=== PATIENT | male | born 1955 | race Caucasian/White ===

== ENCOUNTER → 2023-09-25 16:06 | Outpatient (REF) | payer MEDICARE, SELFPAY ==
[2023-09-25 16:52] LABS: Hematocrit 46.3 % (39.0-52.0); Hemoglobin 15.5 g/dL (13.0-18.0); Mean Corp Hgb Conc. 33.5 g/dL (33.0-37.0); Mean Corpuscular Hgb 31.4 pg (27.0-31.0); Mean Corpuscular Volume 93.9 fL (80.0-94.0); Mean Platelet Volume 9.2 fL (7.4-10.4); Platelet Count 231 10^3/uL (130-400); Red Blood Cell Count 4.93 10^6/uL (4.70-6.10); Red Cell Dist. Width 12.5 % (11.5-14.5); White Blood Cell Count 8.8 10^3/uL (4.8-10.8)
[2023-09-25 17:15] LABS: ALT (SGPT) 70 U/L (0-50); AST (SGOT) 61 U/L (17-59); Albumin 4.8 g/dl (3.5-5.0); Alkaline Phosphatase 70 U/L (38-126); Total Bilirubin 0.7 mg/dl (0.2-1.3); Total Protein 8.1 g/dl (6.3-8.2)
== END ==
LOC: REG 16:06
PROVIDERS: ATTENDING PHYSICIAN Nurse Practitioner Family; FAMILY PHYSICIAN Family Medicine
DX: B18.2 Chronic viral hepatitis C (principal)
CPT/HCPCS: 36415; 80076; 85027

== ENCOUNTER → 2023-10-23 10:33 | Outpatient (REF) | payer MEDICARE, SELFPAY ==
[2023-10-23 11:15] LABS: % Eosinophils 3.1 % (0-6); % Immature Granulocytes 0.3 % (0-0.5); % Lymphocytes 29.9 % (20.5-51.1); % Monocytes 10.9 % (1.7-9.3); % Neutrophils 54.8 % (42.2-75.2); Absolute Basophils 0.1 10^3/uL (0-0.2); Absolute Eosinophils 0.2 10^3/uL (0-0.7); Absolute Lymphocytes 2.2 10^3/uL (1.2-3.4); Absolute Monocytes 0.8 10^3/uL (0.1-0.6); Hematocrit 45.4 % (39.0-52.0); Hemoglobin 15.1 g/dL (13.0-18.0); Mean Corp Hgb Conc. 33.3 g/dL (33.0-37.0); Mean Corpuscular Hgb 31.3 pg (27.0-31.0); Mean Platelet Volume 9.3 fL (7.4-10.4); Nucleated Red Blood Cells % 0 % (-); Platelet Count 233 10^3/uL (130-400); Red Blood Cell Count 4.83 10^6/uL (4.70-6.10); Red Cell Dist. Width 12.1 % (11.5-14.5); White Blood Cell Count 7.3 10^3/uL (4.8-10.8)
[2023-10-23 12:10] LABS: ALT (SGPT) 17 U/L (0-50); AST (SGOT) 28 U/L (17-59); Albumin 4.5 g/dl (3.5-5.0); Alkaline Phosphatase 69 U/L (38-126); Direct Bilirubin 0.2 mg/dl (0.0-0.4); Total Bilirubin 0.5 mg/dl (0.2-1.3); Total Protein 7.7 g/dl (6.3-8.2)
[2023-10-25 03:30] LABS: HCV Quant by NAAT Interp Detected (Not Detected); HCV Quant by NAAT Log IU/mL <1.00 log IU/mL
== END ==
LOC: REG 10:33
PROVIDERS: ATTENDING PHYSICIAN Nurse Practitioner Family; FAMILY PHYSICIAN Family Medicine
DX: B18.2 Chronic viral hepatitis C (principal)
CPT/HCPCS: 36415; 80076; 85025; 87522

== ENCOUNTER → 2023-11-21 11:14 | Outpatient (REF) | payer MEDICARE, SELFPAY ==
[2023-11-21 12:07] LABS: % Basophils 0.8 % (0-2); % Eosinophils 4.8 % (0-6); % Immature Granulocytes 0.4 % (0-0.5); % Lymphocytes 36.2 % (20.5-51.1); % Monocytes 12.1 % (1.7-9.3); % Neutrophils 45.7 % (42.2-75.2); Absolute Basophils 0.1 10^3/uL (0-0.2); Absolute Eosinophils 0.4 10^3/uL (0-0.7); Absolute Lymphocytes 2.6 10^3/uL (1.2-3.4); Absolute Monocytes 0.9 10^3/uL (0.1-0.6); Absolute Neutrophils 3.3 10^3/uL (1.4-6.5); Hemoglobin 14.8 g/dL (13.0-18.0); Mean Corp Hgb Conc. 33.6 g/dL (33.0-37.0); Mean Corpuscular Hgb 31.5 pg (27.0-31.0); Mean Corpuscular Volume 93.6 fL (80.0-94.0); Mean Platelet Volume 9.6 fL (7.4-10.4); Nucleated Red Blood Cells % 0 % (-); Platelet Count 211 10^3/uL (130-400); Red Cell Dist. Width 12.2 % (11.5-14.5); White Blood Cell Count 7.3 10^3/uL (4.8-10.8)
[2023-11-21 12:35] LABS: ALT (SGPT) 19 U/L (0-50); AST (SGOT) 28 U/L (17-59); Albumin 4.5 g/dl (3.5-5.0); Alkaline Phosphatase 60 U/L (38-126); Direct Bilirubin 0.2 mg/dl (0.0-0.4); Total Bilirubin 0.5 mg/dl (0.2-1.3); Total Protein 7.6 g/dl (6.3-8.2)
[2023-11-23 19:18] LABS: HCV Quant by NAAT IU/mL Not Detected; HCV Quant by NAAT Interp Not Detected (Not Detected); HCV Quant by NAAT Log IU/mL Not Detected log IU/mL
== END ==
LOC: REG 11:14
PROVIDERS: ATTENDING PHYSICIAN Nurse Practitioner Family; FAMILY PHYSICIAN Family Medicine
DX: B18.2 Chronic viral hepatitis C (principal)
CPT/HCPCS: 36415; 80076; 85025; 87522

== ENCOUNTER 2023-11-27 14:30 | Emergency (ER) | payer MEDICARE, SELFPAY ==
[2023-11-27 14:39] VITALS: BP 118/80
[2023-11-27 15:01] LABS: % Basophils 0.8 % (0-2); % Eosinophils 1.7 % (0-6); % Immature Granulocytes 0.2 % (0-0.5); % Lymphocytes 22.3 % (20.5-51.1); % Monocytes 9.8 % (1.7-9.3); % Neutrophils 65.2 % (42.2-75.2); Absolute Basophils 0.1 10^3/uL (0-0.2); Absolute Eosinophils 0.2 10^3/uL (0-0.7); Absolute Lymphocytes 2.7 10^3/uL (1.2-3.4); Absolute Monocytes 1.2 10^3/uL (0.1-0.6); Absolute Neutrophils 7.9 10^3/uL (1.4-6.5); Hemoglobin 17.3 g/dL (13.0-18.0); Mean Corp Hgb Conc. 33.9 g/dL (33.0-37.0); Mean Corpuscular Hgb 31.3 pg (27.0-31.0); Mean Corpuscular Volume 92.2 fL (80.0-94.0); Mean Platelet Volume 9.3 fL (7.4-10.4); Nucleated Red Blood Cells % 0 % (-); Platelet Count 246 10^3/uL (130-400); Red Blood Cell Count 5.53 10^6/uL (4.70-6.10); White Blood Cell Count 12.2 10^3/uL (4.8-10.8)
[2023-11-27 15:16] LABS: ALT (SGPT) 27 U/L (0-50); AST (SGOT) 43 U/L (17-59); Albumin 4.8 g/dl (3.5-5.0); Alkaline Phosphatase 75 U/L (38-126); Blood Urea Nitrogen 22 mg/dl (9-20); Calcium 10.1 mg/dl (8.4-10.2); Carbon Dioxide 19 mmol/L (22-30); Chloride 108 mmol/L (98-107); Glucose 105 mg/dl (70-99); Potassium 4.4 mmol/L (3.5-5.1); Sodium 139 mmol/L (135-145); Total Bilirubin 0.8 mg/dl (0.2-1.3); Total Protein 8.3 g/dl (6.3-8.2); eGFR > 60.00
[2023-11-27 15:52] VITALS: BP 146/100
[2023-11-27 16:00] VITALS: BP 116/96
--- NOTE | 2023-11-27 16:04 | ED.GENMED ---
History of Present Illness
General
Chief Complaint: Heart Rate Problem
Time Seen by Provider: 11/27/23 15:39
Travel History
Have you had any contact with someone who has COVID-19?: No
Do you have any symptoms of coronavirus? Fever > 100 degrees, chills, cough, shortness of breath, sore throat, loss of taste or smell, muscle aches, or headache?: No
History of Present Illness
History of Present Illness:
68-year-old male with history of A-fib on Eliquis and dofetilide presents to the emergency department for evaluation of heart palpitations and shortness of breath beginning earlier today. He coincidentally had a routine resolution rep office visit
and was noted to be in rapid atrial fibrillation thus was sent to the emergency department for cardioversion. Upon my evaluation patient feels improved
Past History
Past History
ED Past Medical History: Cancer (Prostate) and Other (Thyroid disease)
Social History
Tobacco: Former smoker
Review of Systems
Review of Systems
Allergies reviewed?: Yes
All Other Systems: ROS reviewed and negative except as documented in HPI and ROS
Phy Exam
Physical Exam
Physical Exam:
GEN: Well appearing, NAD, WDWN
HEENT: Oral mucosa moist, no scleral icterus
Cardiac: Regular rate and rhythm
Lung: No respiratory distress, no tachypnea, lungs clear to auscultation
MSK: No gross deformity or injuries
Skin: Good color, no pallor or jaundice, no rashes
Neuro: AO x3, moves all extremities freely
Psych: Calm, cooperative
Course
Orders/Labs/Results
Orders:
Orders
11/27/23 14:41
ECG [Electrocardiogram (*1)] Urgent
Reason for Study: Tachycardia
EKG- Treatment ONCE
11/27/23 14:50
CMP [Comprehensive Metabolic Panel] Urgent
Complete Blood Count/With Diff Urgent
11/27/23 15:59
Electrocardiogram (*1) Urgent
Reason for Study: Palpitations
EKG- Treatment ONCE
Abnormal Lab Results
11/27/23
14:50
WBC 12.2 H 10^3/uL
(4.8-10.8)
MCH 31.3 H pg
(27.0-31.0)
Absolute Neuts (auto) 7.9 H 10^3/uL
(1.4-6.5)
Absolute Monos (auto) 1.2 H 10^3/uL
(0.1-0.6)
Monocytes % 9.8 H %
(1.7-9.3)
Chloride 108 H mmol/L
(98-107)
Carbon Dioxide 19 L mmol/L
(22-30)
BUN 22 H mg/dl
(9-20)
Glucose 105 H mg/dl
(70-99)
Total Protein 8.3 H g/dl
(6.3-8.2)
11/27/23 14:50
11/27/23 14:50
Vital Signs
Initial and Last Documented VS:
Initial Vital Signs
Pulse Resp BP Pulse Ox
132 20 118/80 96
11/27/23 14:39 11/27/23 14:39 11/27/23 14:39 11/27/23 14:39
Last Documented Vital Signs
Pulse Resp BP Pulse Ox
84 7 116/96 96
11/27/23 16:45 11/27/23 16:45 11/27/23 16:00 11/27/23 16:45
MDM/Problems Addressed
MDM/Problems Addressed:
Patient spontaneously converted to normal sinus while in the emergency department. His labs are unremarkable. Reviewed the case with his resolution rep, no medication changes indicated at this time
Comment
Comment:
Initial EKG independently interpreted by me shows rapid atrial flutter at a rate of [address] depressions compatible with subendocardial injury
Repeat EKG independently interpreted by me shows normal sinus rhythm
*Critical Care Note
Total Time (30-74mins, 75-104mins- exclusive of procedures): Not Applicable
ED Attending Note
-
Portions of this chart may have been created with voice recognition software.� Occasional wrong word or��sound alike� substitutions may have occurred due to the inherent limitations of voice recognition software.
Discharge Plan
Departure
Patient Disposition: Home (Routine Discharge)
Date of Disposition: 11/27/23
Time of Disposition: 16:23
Patient with high blood pressure during this ER visit?: No
Discharge Problem:
Atrial fibrillation with RVR
Instructions: Atrial Fibrillation (DC)
Prescriptions:
No Action
Eliquis 5 mg tablet
5 mg PO BID Qty: 60 0RF
spironolactone 25 mg Tablet
12.5 mg PO DAILY
furosemide 20 mg Tablet
20 mg PO DAILY
albuterol sulfate 90 mcg/actuation Hfa Aerosol Inhaler
2 puff INHALATION QID PRN (Reason: SOB)
lisinopril 2.5 mg Tablet
2.5 mg PO DAILY
Anoro Ellipta 62.5-25 mcg/actuation Blister With Device
1 inh INHALATION QPM
Jardiance 10 mg Tablet
10 mg PO DAILY
metoprolol succinate 25 mg Tablet Extended Release 24 Hr
25 mg PO BID Qty: 180 3RF
Rx Instructions:
Please note increased dose to twice a day
dofetilide [Tikosyn] 500 mcg capsule
500 mcg PO Q12H Qty: 60 2RF
Referrals:
Killian Wagner MD [Active] -
Skyler Kilpatrick MD [Family Provider] -
Interventions
Interventions:
*Risk Screen - Suicide Last Done: 11/27/23 16:40
*General Assessment Last Done: 11/27/23 16:40
*Neglect/Abuse Screening Last Done: 11/27/23 16:40
ED- Fall Risk Assessment Last Done: 11/27/23 16:40
*ED COVID-19 Vaccine History Last Done: 11/27/23 14:39
*Nursing Disposition Last Done: 11/27/23 17:05
ED- Cardiac Assessment Last Done: 11/27/23 16:40
ED- Pulmonary Assessment Last Done: 11/27/23 16:40
Discharge Date and Time
Discharge Date/Time: 11/27/23 17:05
Print Language: MOZAMBICAN
== END 2023-11-27 17:05 | disposition home or self-care (01) ==
LOC: EMR 14:30
PROVIDERS: Emergency Medicine; EMERGENCY PHYSICIAN Student in an Organized Health Care Education/Training Program; FAMILY PHYSICIAN Family Medicine
DX: I48.91 Unspecified atrial fibrillation (principal); E07.9 Disorder of thyroid, unspecified; Z87.891 Personal history of nicotine dependence; Z79.01 Long term (current) use of anticoagulants
CPT/HCPCS: 99283; 80053; 85025; 93005

== ENCOUNTER → 2023-11-29 08:10 | Outpatient (REF) | payer MEDICARE, SELFPAY | LOC: RCS 08:10 | PROVIDERS: ATTENDING PHYSICIAN Internal Medicine; FAMILY PHYSICIAN Family Medicine | DX: I42.0 Dilated cardiomyopathy (principal) | CPT/HCPCS: 93306 ==

== ENCOUNTER → 2024-02-12 09:26 | Outpatient (REF) | payer MEDICARE, SELFPAY ==
[2024-02-12 10:53] LABS: % Basophils 1.1 % (0-2); % Immature Granulocytes 0.4 % (0-0.5); % Lymphocytes 35.8 % (20.5-51.1); % Monocytes 11.7 % (1.7-9.3); Absolute Basophils 0.1 10^3/uL (0-0.2); Absolute Eosinophils 0.5 10^3/uL (0-0.7); Absolute Lymphocytes 2.7 10^3/uL (1.2-3.4); Absolute Monocytes 0.9 10^3/uL (0.1-0.6); Absolute Neutrophils 3.4 10^3/uL (1.4-6.5); Hematocrit 42.7 % (39.0-52.0); Hemoglobin 14.6 g/dL (13.0-18.0); Mean Corp Hgb Conc. 34.2 g/dL (33.0-37.0); Mean Corpuscular Hgb 31.5 pg (27.0-31.0); Mean Platelet Volume 9.2 fL (7.4-10.4); Nucleated Red Blood Cells % 0 % (-); Platelet Count 211 10^3/uL (130-400); Red Blood Cell Count 4.64 10^6/uL (4.70-6.10); Red Cell Dist. Width 12.7 % (11.5-14.5); White Blood Cell Count 7.5 10^3/uL (4.8-10.8)
[2024-02-12 14:45] LABS: ALT (SGPT) 42 U/L (0-50); AST (SGOT) 38 U/L (17-59); Albumin 4.5 g/dl (3.5-5.0); Alkaline Phosphatase 61 U/L (38-126); Direct Bilirubin 0.1 mg/dl (0.0-0.4); Total Bilirubin 0.6 mg/dl (0.2-1.3); Total Protein 7.3 g/dl (6.3-8.2)
[2024-02-14 03:20] LABS: HCV Quant by NAAT IU/mL Not Detected; HCV Quant by NAAT Interp Not Detected (Not Detected); HCV Quant by NAAT Log IU/mL Not Detected log IU/mL
== END ==
LOC: REG 09:26
PROVIDERS: ATTENDING PHYSICIAN Nurse Practitioner Family; FAMILY PHYSICIAN Family Medicine
DX: B18.2 Chronic viral hepatitis C (principal)
CPT/HCPCS: 36415; 80076; 85025; 87522

== ENCOUNTER → 2024-04-14 08:00 | Outpatient (REF) | payer MEDICARE, SELFPAY ==
[2024-04-14 09:26] LABS: HDL Cholesterol 65 mg/dl; LDL Cholesterol, Calculated 58 mg/dl; Total Cholesterol 140 mg/dl (50-199); Triglyceride 85 mg/dl (10-149); Very Low Density Lipoprotein 17 mg/dl (0-30)
== END ==
LOC: REG 08:00
PROVIDERS: ATTENDING PHYSICIAN Internal Medicine; FAMILY PHYSICIAN Family Medicine
DX: E78.2 Mixed hyperlipidemia (principal)
CPT/HCPCS: 36415; 80061

== ENCOUNTER → 2024-05-06 07:01 | Outpatient (REF) | payer MEDICARE, SELFPAY ==
[2024-05-06 08:16] LABS: % Eosinophils 6.9 % (0-6); % Immature Granulocytes 0.3 % (0-0.5); % Monocytes 11.8 % (1.7-9.3); Absolute Basophils 0.1 10^3/uL (0-0.2); Absolute Eosinophils 0.5 10^3/uL (0-0.7); Absolute Lymphocytes 2.2 10^3/uL (1.2-3.4); Absolute Monocytes 0.8 10^3/uL (0.1-0.6); Absolute Neutrophils 3.3 10^3/uL (1.4-6.5); Hematocrit 43.3 % (39.0-52.0); Hemoglobin 14.7 g/dL (13.0-18.0); Mean Corp Hgb Conc. 33.9 g/dL (33.0-37.0); Mean Corpuscular Hgb 31.3 pg (27.0-31.0); Mean Corpuscular Volume 92.1 fL (80.0-94.0); Mean Platelet Volume 9.7 fL (7.4-10.4); Nucleated Red Blood Cells % 0 % (-); Platelet Count 215 10^3/uL (130-400); Red Cell Dist. Width 12.2 % (11.5-14.5); White Blood Cell Count 6.9 10^3/uL (4.8-10.8)
[2024-05-06 08:28] LABS: ALT (SGPT) 28 U/L (0-50); AST (SGOT) 33 U/L (17-59); Albumin 4.5 g/dl (3.5-5.0); Alkaline Phosphatase 46 U/L (38-126); Total Bilirubin 0.4 mg/dl (0.2-1.3); Total Protein 7.2 g/dl (6.3-8.2)
[2024-05-08 17:13] LABS: HCV Quant by NAAT IU/mL Not Detected; HCV Quant by NAAT Interp Not Detected (Not Detected); HCV Quant by NAAT Log IU/mL Not Detected log IU/mL
== END ==
LOC: REG 07:01
PROVIDERS: ATTENDING PHYSICIAN Nurse Practitioner Family; FAMILY PHYSICIAN Family Medicine
DX: B18.2 Chronic viral hepatitis C (principal)
CPT/HCPCS: 36415; 80076; 85025; 87522

== ENCOUNTER 2025-03-17 10:47 | Emergency (ER) | payer MEDICARE, SELFPAY ==
[2025-03-17 10:54] VITALS: BP 137/93
--- NOTE | 2025-03-17 11:24 | ED.MUSCINJ ---
HPI-Injury
General
Chief Complaint: Musculo-Skeletal Complaint
Source: patient
Exam Limitations: none
Time Seen by Provider: 03/17/25 11:16
History of Present Illness-Injury
Initial Injury comments:
69-year-old male with history of A-fib on Eliquis and dofetilide presents complaining of worsening left hip and leg pain over the past several months. The pain started after lifting an heavy object. The pain radiates from the buttock down to the
leg. Mostly centered in the groin and lateral left hip. No fevers. No rashes or tick bites. No bowel or bladder dysfunction. No other complaints at this time
Past History
Past History
ED Past Medical History: Cancer (Prostate) and Other (Thyroid disease)
Social History
Tobacco: Former smoker
Phy Exam
Physical Exam
Physical Exam:
General: Well-appearing male no acute respiratory distress HEENT: Normocephalic atraumatic
Heart: Regular rate and rhythm lungs: Clear no wheeze
Musculoskeletal exam: The patient has increased pain with any type of rotation of the hip and flexion of the hip.
Neurologic exam: Alert and oriented good strength to lower extremities bilateral patellar's are 2+. Mildly positive straight leg raise left lower extremity
Skin is warm no rash
Injury Course
Orders/Labs/Results
Orders:
Orders
03/17/25 11:23
CR Hip - LT w/wo Pel 2-3 Vw* Urgent
Comment:
Reason For Exam: pain
Include a pelvis x-ray?: Yes
CR Lumbar Spine 2 Or 3 Views Urgent
Comment:
Reason For Exam: back pain
MDM/Problems Addressed
Differential Diagnosis Includes:
Pain and left leg radiating down from the back but centered around the hip. Consider radiculopathy versus bursitis versus degenerative joint disease. No fever to suggest infectious source. No red flags to suggest cauda equina.
X-rays of the lumbar spine and hip are pending
*Pulse Oximetry
SaO2: 96
Oxygen Mode of Delivery: Room air
Patient hypoxic: no
*Critical Care Note
Total Time (30-74mins, 75-104mins- exclusive of procedures): Not Applicable
Update Note
Update Note:
X-rays of the hip demonstrate degenerative joint disease of the left hip. There is mild to moderate degenerative disc disease in the lumbar spine. I suspect DJD could be source of the patient's groin pain but he may have a radicular component to
the leg otherwise. Will prescribe prednisone. Stable for discharge with orthopedic follow-up
ED Attending Note
-
Portions of this chart may have been created with voice recognition software.� Occasional wrong word or��sound alike� substitutions may have occurred due to the inherent limitations of voice recognition software.
Discharge Plan
Departure
Patient Disposition: Home (Routine Discharge)
Date of Disposition: 03/17/25
Time of Disposition: 14:08
Patient with high blood pressure during this ER visit?: No
Discharge Problem:
Acute hip pain
Instructions: Muscle and Bone Pain (DC)
Prescriptions:
New
prednisone 50 mg tablet
50 mg PO DAILY Qty: 5 0RF
No Action
Eliquis 5 mg tablet
5 mg PO BID Qty: 60 0RF
spironolactone 25 mg Tablet
12.5 mg PO DAILY
furosemide 20 mg Tablet
20 mg PO DAILY
albuterol sulfate 90 mcg/actuation Hfa Aerosol Inhaler
2 puff INHALATION QID PRN (Reason: SOB)
lisinopril 2.5 mg Tablet
2.5 mg PO DAILY
Anoro Ellipta 62.5-25 mcg/actuation Blister With Device
1 inh INHALATION QPM
Jardiance 10 mg Tablet
10 mg PO DAILY
metoprolol succinate 25 mg Tablet Extended Release 24 Hr
25 mg PO BID Qty: 180 3RF
Rx Instructions:
Please note increased dose to twice a day
dofetilide [Tikosyn] 500 mcg capsule
500 mcg PO Q12H Qty: 60 2RF
Referrals:
Danish Mccain MD [Active, Orthopedics]
Skyler Kilpatrick MD [Family Provider, Family Practice]
Activity Restrictions/Additional Instructions:
Use prednisone as directed. Turn if worse otherwise follow-up with orthopedics
Interventions
Interventions:
*Risk Screen - Suicide Last Done: 03/17/25 10:54
*General Assessment Last Done: 03/17/25 10:54
Discharge Date and Time
Print Language: MACEDONIAN
[2025-03-17 14:37] VITALS: BP 129/88
== END 2025-03-17 14:38 | disposition home or self-care (01) ==
LOC: EMR 10:47
PROVIDERS: EMERGENCY PHYSICIAN Emergency Medicine; FAMILY PHYSICIAN Family Medicine
DX: M25.552 Pain in left hip (principal); M79.606 Pain in leg, unspecified; I48.91 Unspecified atrial fibrillation; Z79.01 Long term (current) use of anticoagulants; Z87.891 Personal history of nicotine dependence
CPT/HCPCS: 99283; 72100; 73502